=== PATIENT | male | born 1995 | race African-American/Black ===

== ENCOUNTER 2017-01-20 13:09 | Emergency (ER) | payer SELFPAY ==
[~2017-01-20] VITALS: Ht 182.9 cm; Wt 100.0 kg
[2017-01-20] MEDS ORDERED: ASPIRIN 81 MG CHEWABLE TABLET PO ONE (15:30)
[2017-01-20] MEDS ORDERED: ASPIRIN 325 MG TABLET PO ONE (15:30)
[2017-01-20 15:54] LABS: BASOPHILS % (AUTO) 0.4 % (0.0-2.0); EOSINOPHILS % (AUTO) 0.5 % (1.0-6.0); HEMOGLOBIN 15.9 g/dL (13.5-17.5); LYMPHOCYTES # (AUTO) 0.6 K/uL (1.0-4.8); MEAN CORPUSCULAR HEMOGLOBIN 32.2 pg (26.0-34.0); MEAN CORPUSCULAR HGB CONC 34.5 G/dL (31.0-37.0); MEAN CORPUSCULAR VOLUME 93 fL (80-100); MONOCYTES # (AUTO) 0.4 K/uL (0.1-1.0); MONOCYTES % (AUTO) 4.7 % (2.0-9.0); NEUTROPHILS # (AUTO) 7.5 K/uL (1.8-7.7); PLATELET COUNT (AUTO) 177 K/uL (150-450); RED BLOOD CELL COUNT(AUTO) 4.93 MIL/uL (4.50-5.90); RED CELL DISTRIBUTION WIDTH 12.8 % (11.5-14.5); WHITE BLOOD COUNT (AUTO) 8.5 K/uL (4.5-11.0)
[2017-01-20 15:58] LABS: NEUTROPHILS % (AUTO) 87.4 % (40.0-70.0)
[2017-01-20 15:59] LABS: GLUCOSE, URINE (UA) NEGATIVE (NEGATIVE); KETONES,URINE NEGATIVE (NEGATIVE); LEUKOCYTE ESTERASE ,URINE SMALL (NEGATIVE); OCCULT BLOOD,URINE NEGATIVE (NEGATIVE); PH,URINE 7.5 (5.0-8.0); PROTEIN,URINE NEGATIVE (NEGATIVE)
[2017-01-20 16:04] LABS: ANION GAP 7 mmol/L (8-16); CALCIUM, TOTAL 9.4 mg/dL (8.8-10.5); CARBON DIOXIDE 29 mmol/L (22-29); CHLORIDE 105 mmol/L (98-107); CREATININE 1.12 mg/dL (0.60-1.30); GLOMERULAR FILTR. RATE CALC > 60 mL/min (>60); POTASSIUM 4.4 mmol/L (3.5-5.1); SODIUM SERUM 141 mmol/L (136-145); UREA NITROGEN, BLOOD 9 mg/dL (7-18)
[2017-01-20 16:08] LABS: ADD UA MICROSCOPIC YES; APPEARANCE,URINE HAZY (CLEAR)
[2017-01-20 16:09] LABS: RBC,URINE 0-2 /HPF (0-2)
[2017-01-20 16:22] LABS: INFLUENZA TYPE B NEGATIVE FOR TYPE B (NEGATIVE)
[2017-01-20 16:28] LABS: ALANINE AMINOTRANSFERASE 30 U/L (12-78); ALBUMIN 4.5 g/dL (3.4-5.0); ASPARTATE AMINOTRANSFERASE 24 U/L (15-37); BILIRUBIN,TOTAL 0.8 mg/dL (0.1-1.0); CREATINE KINASE MB 1.9 ng/mL (0-5); CREATINE KINASE, TOTAL 451 U/L (39-308); RBC MORPHOLOGY COMMENT NORMAL RBC MORPH
[2017-01-20 17:15] LABS: THYROID STIMULATING HORMONE 0.73 uIU/mL (0.36-3.74)
[2017-01-20 17:44] VITALS: BP 158/74
== END 2017-01-20 18:00 | disposition home or self-care (01) ==
LOC: EMS 13:11 → EDSEX 13:11 → EMS 18:00
DX: I31.9 Disease of pericardium, unspecified (principal)
CPT/HCPCS: 84443; 87086; 87804; 93005; 99285

== ENCOUNTER 2017-03-20 23:13 | Emergency (ER) | payer SELFPAY ==
[~2017-03-20] VITALS: Ht 182.9 cm; Wt 105.0 kg
[2017-03-21] MEDS ORDERED: LIDOCAINE HCL/PF 1% 2 ML VIAL IM ONE (01:15)
[2017-03-21] MEDS ORDERED: CefTRIAXone SODIUM 1 GM/VIAL IM ONE (01:15)
[2017-03-21] MEDS ORDERED: DOXYCYCLINE 100 MG CAPSULE PO ONE (01:15)
[2017-03-21 01:35] VITALS: BP 128/70
[2017-03-23 01:22] LABS: GC DNA N.A. AMPLIFY Negative (Negative)
== END 2017-03-21 02:08 | disposition home or self-care (01) ==
LOC: EMS 23:14
DX: A56.01 Chlamydial cystitis and urethritis (principal)
CPT/HCPCS: 87491; 87591; 96372; 99284; J0696; J3490